=== PATIENT | female | born 1990 | race Caucasian/White ===

== ENCOUNTER 2018-03-24 21:18 | Emergency (ER) | payer OTHER ==
[~2018-03-24] VITALS: Ht 172.7 cm; Wt 97.4 kg
[2018-03-24 21:57] LABS: URINE BILIRUBIN - DIPSTICK NEGATIVE (NEGATIVE); URINE BLOOD DIPSTICK NEGATIVE (NEGATIVE); URINE GLUCOSE - DIPSTICK 100 mg/dL (NEGATIVE); URINE KETONE NEGATIVE (NEGATIVE); URINE LEUK ESTERASE TRACE (NEGATIVE); URINE PROTEIN - DIPSTICK 30 mg/dL (NEG-TRACE)
[2018-03-24 22:00] LABS: URINE COLOR ORANGE; URINE NITRITE - DIPSTICK POSITIVE (Negative)
[2018-03-24 22:08] LABS: URINE BACTERIA RARE hpf; URINE SQUAMOUS EPITHELIAL CELL FEW EPI/hpf (0-FEW)
[2018-03-24] MEDS ORDERED: PYRIDIUM200 MG PO (22:15)
[2018-03-24] MEDS ORDERED: BACTRIM DS1 TAB PO (22:15)
[2018-03-24 22:30] VITALS: BP 140/80
== END 2018-03-24 22:30 | disposition home or self-care (01) ==
LOC: ED 21:18
PROVIDERS: Emergency Medicine
DX: N39.0 Urinary tract infection, site not specified (principal); B96.20 Unspecified Escherichia coli [E. coli] as the cause of diseases classified elsewhere; R10.30 Lower abdominal pain, unspecified; R30.0 Dysuria

== ENCOUNTER 2018-06-10 07:23 | Emergency (ER) | payer OTHER ==
[~2018-06-10] VITALS: Ht 172.7 cm; Wt 98.0 kg
[~2018-06-10 07:23] MED LIST: BACTRIM DS1 TAB PO; PYRIDIUM200 MG PO
[2018-06-10] MEDS ORDERED: ZPAK PO (08:13)
[2018-06-10 08:19] VITALS: BP 135/91
== END 2018-06-10 08:22 | disposition home or self-care (01) | DRG 153 ==
LOC: ED 07:23
DX: J02.0 Streptococcal pharyngitis (principal); R05 Cough

== ENCOUNTER 2018-09-05 14:45 | Emergency (ER) | payer SELFPAY ==
[~2018-09-05] VITALS: Ht 172.7 cm; Wt 105.0 kg
[~2018-09-05 14:45] MED LIST changes: +ZPAK PO
[2018-09-05] MEDS ORDERED: CORTISPORIN OTI10 M2 AD (15:16)
[2018-09-05] MEDS ORDERED: KEFLEX500 M1 PO (15:16)
[2018-09-05 15:20] VITALS: BP 150/87
[2018-09-07] MEDS ORDERED: ZPAK PO (10:13)
== END 2018-09-05 15:20 | disposition home or self-care (01) | DRG 153 ==
LOC: ED 14:45
DX: J02.9 Acute pharyngitis, unspecified (principal); H60.91 Unspecified otitis externa, right ear

== ENCOUNTER 2020-08-07 08:36 | Emergency (ER) | payer OTHER ==
[~2020-08-07] VITALS: Ht 172.7 cm; Wt 95.0 kg
[~2020-08-07 08:36] MED LIST changes: +CORTISPORIN OTI10 M2 AD; +KEFLEX500 M1 PO
[2020-08-07 09:17] LABS: HCG SERUM/URINE (NEG/POS) NEGATIVE (NEGATIVE)
[2020-08-07] MEDS ORDERED: ZPAK PO (10:02)
[2020-08-07 10:41] VITALS: BP 112/72
== END 2020-08-07 10:41 | disposition home or self-care (01) ==
LOC: ED 08:36
PROVIDERS: Family Medicine
DX: J02.0 Streptococcal pharyngitis (principal); Z20.822 Contact with and (suspected) exposure to COVID-19